=== PATIENT | female | born 1950 | race Caucasian/White ===

== ENCOUNTER 2020-12-07 18:11 | Inpatient (IN) | payer OTHER, BC ==
[~2020-12-07] VITALS: Ht 165.1 cm; Wt 76.7 kg
[2020-12-07 18:24] VITALS: BP 147/75
[2020-12-07 19:30] LABS: BASOPHILS 0.4 % (0.0-2.0); HEMATOCRIT 36.5 % (37.0-47.0); HEMOGLOBIN 12.7 gm/dL (12.0-15.0); LYMPHOCYTES 15.4 % (24.0-44.0); MCH 34.4 pg (26.0-34.0); MCHC 34.8 g/dL (28.0-37.0); MCV 98.9 fL (80.0-100.0); MONOCYTES 12.5 % (1.0-8.0); PLATELET COUNT 204 thou/uL (150-400); POLYS 68.7 % (36.0-66.0); RBC 3.69 mil/uL (4.20-5.00); RDW 15.2 % (10.5-14.5); WBC 5.8 thou/uL (4.0-11.0)
[2020-12-07 19:40] LABS: ANION GAP 8 mmol/L (7-16); BUN 18 mg/dL (7-18); CALCIUM 7.9 mg/dL (8.5-10.1); CHLORIDE 102 mmol/L (98-107); CO2 26 mmol/L (21-32); CREATININE 1.1 mg/dL (0.6-1.0); GLUCOSE 92 mg/dL (74-106); POTASSIUM 4.2 mmol/L (3.5-5.1); SODIUM 136 mmol/L (136-145)
[2020-12-07 19:49] LABS: ALBUMIN 3.1 g/dL (3.4-5.0); SGOT 18 U/L (15-37); SGPT 25 U/L (30-65); TOTAL BILIRUBIN 0.4 mg/dL (0.2-1.0); TOTAL PROTEIN 6.6 g/dL (6.4-8.2); TROPONIN-I <0.06 ng/mL (<0.06)
[2020-12-07 21:28] VITALS: BP 125/69
[2020-12-07 22:02] LABS: INR 0.93; PROTIME 10.2 Seconds (10.5-12.1)
[2020-12-07 22:11] VITALS: BP 123/67
[2020-12-07 23:00] VITALS: BP 138/62
[2020-12-08 04:52] LABS: CHOLESTEROL 206 mg/dL (<200); HDL CHOLESTEROL 49 mg/dL (>40); LDL CHOLESTEROL 145 mg/dL (<100); TC:HDL 4.2 Ratio (Not establshd); TRIGLYCERIDE 60 mg/dL (<150); VLDL 12 mg/dL (<40)
[2020-12-08 05:11] LABS: SERUM ASSESSMENT Clear
[2020-12-08 05:48] VITALS: BP 117/59
--- NOTE | 2020-12-08 06:23 | NUR ---
ADMITTED THIS PATIENT FROM EMERGENCY.ON ROOM AIR BREATHING SPONTANEOUSLY.NOT IN PAIN OR DISTRESS.ADMISSION COMPLETED.STROKE MOINTORING DONE AND CHARTED.ALL NEEDS ATTENDED.
[2020-12-08 07:00] LABS: AMP/METHAMP Negative (Negative); BARBITURATES Negative (Negative); BENZODIAZEPINES Negative (Negative); COCAINE Negative (Negative); METHADONE Negative (Negative); OPIATES Negative (Negative); PCP Negative (Negative)
--- NOTE | 2020-12-08 07:48 | EKG ---
[address] [address] ELECTROCARDIOGRAM REPORT Name: ASHLI MARS Room #: 200-I ADM IN M.R.#: [id number] Admission: 12/07/20 Attend Phys: Skyler Thomson MD Discharge: Date of : 54 Report #: [id number] [facility] ED Test Date: 2020-12-07 Test Time: 18:56:41 Pat Name: ASHLI MARS Department: Room: 200 Gender: F Pathology Lab Technician: amilcar : 1950 Requested By: Ramón Velasco Order Number: [id number] : Stoney Dale Measurements Intervals [place] Rate: 99 P: 68 WV: 149 QRS: 13 QRSD: 85 T: 42 QT: 359 QTc: 461 Interpretive Statements Sinus rhythm No previous ECG available for comparison Electronically Signed On 12-08-2020 7:48:26 CDT by Stoney Dale [email or web address] <ELECTRONICALLY SIGNED> By: Stoney Dale MD, [facility] 12/08/20 0748 1856 Stoney Dale MD, FACC /EPI
[2020-12-08 08:18] VITALS: BP 124/59
--- NOTE | 2020-12-08 12:22 | HC ---
[facility] [place] [address] CONSULTATION Name: ASHLI MARS Room #: 200-I ADM IN ..#: [id number] Admission: 12/07/20 Attend Phys: Skyler Thomson MD Discharge: Date of : 54 Report #: [id number] THIS REPORT FOR: cc: FAM - Family physician unknown FAM - Family physician unknown Rad Garza MD ~ DATE OF SERVICE: 12/07/2020 HISTORY OF PRESENT ILLNESS: This is a 70-year-old female patient who was admitted with a 15-minute episode of garbled speech. It came spontaneously. She was able to understand all the people, but she was not able to express herself. The speech was garbled. There was no associated weakness on either side. The symptoms came spontaneously and symptoms resolved spontaneously. REVIEW OF SYSTEMS: A 14-point review of system was carried out. She indicates that she is healthy. She does have rheumatoid arthritis and she takes some injections for that. She is not a known diabetic or hypertensive. She does not know what her last cholesterol was. She does have a history of COPD and CT-angiogram demonstrates the same thing. Rest of the 14-point review of system was carried out and noncontributory. PAST MEDICAL HISTORY: Negative for any cardiac problem or any stroke or TIA. FAMILY HISTORY: Negative for early age stroke. SOCIAL HISTORY: She says she drinks alcohol very rarely and she does not smoke. PHYSICAL EXAMINATION: NEUROLOGIC: Indicate she is alert, responsive, able to follow simple and complex commands. She was able to tell me what date it is. It did take a little longer. She knew who the President was. Her speech was clear. Cranial nerve examination 2-12 and neuromuscular examination is checked for strength, sensation, reflexes, and tone was unremarkable. There was no cerebellar sign. I could not look at the patient's fundus. She is a reasonably well-developed individual. Her hearing and vision is adequate. She has no edema, cyanosis, or jaundice. CARDIAC: Unremarkable. No respiratory difficulty was noticed. Pulses were palpable. VITAL SIGNS: Blood pressure is 131/64, respirations 13, pulse of 93. LABORATORY DATA: Labs indicate GFR is somewhat on the lower side at 49, calcium is somewhat on the lower side. She had a CT-angiogram, which was unremarkable. IMPRESSION: 1. Transient ischemic attack. 2. CT-angiogram showing some abnormality in the chest. I will defer evaluation [address] [address] CONSULTATION Name: ASHLI MARS Room #: 200-I ADM IN [facility]#: [id number] Admission: 12/07/20 Attend Phys: Skyler Thomson MD Discharge: Date of : 54 Report #: [id number] and management to the hospitalist. RECOMMENDATIONS: 1. I recommended MRI of the brain. She does not think she can it because she is claustrophobic, but she wants to try. 2. Echocardiogram with bubble study. 3. Aspirin. 4. Lipid profile. 5. Further management will depend upon the outcome of the above testing. I discussed all of it with the patient and discussed her options in that regard and she wants to follow this plan. Thank you very much for this referral. <ELECTRONICALLY SIGNED> By: Rad Garza MD 12/08/20 1222 1848 0036 Rad Garza MD /nt
--- NOTE | 2020-12-08 13:44 | 2DMMODE ---
[facility] [place] [address] 2 D/M-MODE ECHOCARDIOGRAM Name: ASHLI MARS Room #: 200-I ADM IN .R.#: [id number] Admission: 12/07/20 Attend Phys: Skyler Thomson MD Discharge: Date of : 54 Report #: [id number] THIS REPORT FOR: cc: FAM - Family physician unknown FAM - Family physician unknown Stoney Dale MD [facility] ~ APPROVED REPORT Study performed: 12/08/2020 12:02:58 EXAM: Comprehensive 2D, Doppler, and color-flow Echocardiogram Patient Location: In-Patient Room #: 200 Status: routine BSA: 1.92 HR: 78 bpm BP: 124/59 mmHg Rhythm: NSR Other Information Study Quality: Adequate 2D Dimensions RVDd: 26.87 mm IVSd: 12.86 (7-11mm) LVOT Diam: 20.90 (18-24mm) LVDd: 39.71 mm PWd: 9.85 (7-11mm) LVDs: 25.98 (25-40mm) Left Atrium: 28.28 (27-40mm) Aortic Root: 25.73 mm Volumes Left Atrial Volume (Systole) Single Plane 4CH: 24.33 mL Single Plane 2CH: 12.54 mL Aortic Valve AoV Peak Fausto.: 1.24 m/s AO Peak Gr.: 6.17 mmHg LVOT Max P.96 mmHg LVOT Max V: 0.86 m/s PACO Vmax: 2.38 cm2 Mitral Valve E/A Ratio: 1.9 MV Decel. Time: 261.83 ms [facility] [address] [place] [address] 2 D/M-MODE ECHOCARDIOGRAM Name: ASHLI MARS Room #: 200-I [facility] IN [facility]#: [id number] Admission: 12/07/20 Attend Phys: Skyler Thomson MD Discharge: Date of : 54 Report #: [id number] MV E Max Fausto.: 0.59 m/s MV A Fausto.: 0.31 m/s MV PHT: 75.93 ms Pulmonary Valve PV Peak Fausto.: 1.03 m/s PV Peak Gr.: 4.27 mmHg Pulmonary Vein P Vein S: 0.38 m/s P Vein A: 0.31 m/s P Vein D: 0.45 m/s P Vein S/D Ratio: 0.84 Tricuspid Valve TR Peak Fausto.: 2.62 m/s RAP Estimate: 7.00 mmHg TR Peak Gr.: 27.45 mmHg RVSP: 34.00 mmHg Left Ventricle The left ventricle is normal size. There is normal LV segmental wall motion. There is normal left ventricular wall thickness. Left ventricular systolic function is normal. The left ventricular ejection fraction is within the normal range. LVEF is 60-65%. Transmitral Doppler flow pattern suggests impaired LV relaxation. Right Ventricle The right ventricle is normal size. The right ventricular systolic function is normal. Atria The left atrium size is normal. The right atrium size is normal. Aortic Valve Aortic valve is trileaflet. No aortic regurgitation is present. There is no aortic valvular stenosis. Mitral Valve The mitral valve is normal in structure. Trace to mild mitral regurgitation. No evidence of mitral valve stenosis. Tricuspid Valve The tricuspid valve is normal in structure. Mild tricuspid regurgitation. Pulmonic Valve The pulmonary valve is normal in structure. There is no pulmonic [facility] [email or web address] [address] 2 D/M-MODE ECHOCARDIOGRAM Name: ASHLI MARS Room #: 200-I ADM IN [facility]#: [id number] Admission: 12/07/20 Attend Phys: Skyler Thomson MD Discharge: Date of : 54 Report #: [id number] valvular regurgitation. Great Vessels The aortic root is normal in size. IVC is normal in size and collapses >50% with inspiration. Pericardium There is no pericardial effusion. There is no pleural effusion. <Conclusion> Normal left ventricular size/wall thickness Ejection fraction 60% Normal right ventricular size/function Normal atrial size Normal aortic valve structure and function Mild mitral valve insufficiency Mild tricuspid valve insufficiency Pulmonary systolic pressure estimated at 34 mmHg No pericardial effusion Normal aortic root size. <ELECTRONICALLY SIGNED> By: Stoney Dale MD, [facility] 12/08/20 1343 1343 42 Stoney Dale MD, [facility] /INF
[2020-12-08 15:45] VITALS: BP 115/67
--- NOTE | 2020-12-08 17:58 | NUR ---
ASSUMED CARE SHIFT CHANGE. VSS. C/O HEADACHE MANAGED WITH PO TYLENOL. PT UP MILLER WELL. REFUSED AM PEPCID, REFUSES IV FLUIDS STATING SHE FEELS SHES DRINKING ENOUGH. MRI FOR TODAY- PT RELUCTANT IN GOING UNLESS PUT TO SLEEP WITH ANESTHESIA D/T CLAUSTROPHOBIA. NEURO NOTIFIED, AGREEABLE FOR PT TO HAVE DONE OUTPATIENT. AT APPROX 1600 PT HAD APHASIC EPISODE, CODE STROKE CALLED. APHASIA LASTED APPROX 3.5 MINUTES. VSS, NIH SCORE 3. NEUROLOGIST NOTIFIED, ORDERS RECEIVED FOR EEG. PT CURRENTLY SITTING UP IN BED. DENIES NEEDS. FREQ CHECKS ON PT. CONT POC, WILL PASS REPORT TO NOC RN.
[2020-12-08 20:00] VITALS: BP 137/77
[2020-12-09 02:10] LABS: GLYCOHEMOGLOBIN (HGB A1C) 5.6 % (4.8-5.6)
[2020-12-09 04:55] VITALS: BP 124/66
[2020-12-09] MEDS ORDERED: TIROSINT75 MCG PO (07:34)
[2020-12-09] MEDS ORDERED: LIPITOR 20 MG T20 M1 PO (07:34)
[2020-12-09] MEDS ORDERED: BAYER CHEWABLE81 MG PO (07:34)
[2020-12-09 08:28] VITALS: BP 125/65
[2020-12-09] MEDS ORDERED: CLOPIDOGREL75 MG PO (12:53)
--- NOTE | 2020-12-09 13:29 | NUR ---
PT RESTING COMFORTABLY. NIH-0. PT HAS HAD NO SPEECH PROBLEMS OR ANY OTHER NEURO DEFICIT. BUBBLE STUDY DONE AT BEDSIDE. EEG NEGATIVE. PT AFEBRILE, ADEQUATE UOP, NO BM, APPROPRIATE APPETITE. PT HAS BEEN THOUROUGHLY UPDATED AND EDUCATED ON PT CONDITION AND POC. PT PROGRESSED TOWARDS POC. PT TO BE DC HOME TODAY.
[2020-12-09 13:33] VITALS: BP 125/65
--- NOTE | 2020-12-09 13:49 | 2DMMODE ---
[facility] [place] [address] 2 D/M-MODE ECHOCARDIOGRAM Name: ASHLI MARS Room #: 200-I ADM IN M.R.#: [id number] Admission: 12/07/20 Attend Phys: Skyler Thomson MD Discharge: Date of : 54 Report #: [id number] THIS REPORT FOR: cc: FAM - Family physician unknown FAM - Family physician unknown Reece Colvin MD ~ APPROVED REPORT Patient Location: Bedside Room #: 200 Stress Nurse: Limited study for agitated saline injection. Normal left ventricular size and function. Normal atriums. The atrial septum show no shunt with normal saline injection. Conclusion 1. Adequate opacification of Right Atrium and Right Ventricle 2. No evidence of Left sided Microbubbles 3. No Intracardiac shunt noted <ELECTRONICALLY SIGNED> By: Reece Colvin MD 12/09/20 1349 1349 48 Reece Colvin MD /INF
--- NOTE | 2020-12-13 13:23 | EEG ---
[facility] [place] [address] ELECTROENCEPHALOGRAM Name: ASHLI MARS Room #: 200-I [facility] IN M.R.#: [id number] Admission: 12/07/20 Attend Phys: Skyler Thomson MD Discharge: 12/09/20 Date of : 54 Report #: [id number] THIS REPORT FOR: //name// EEG REPORT This patient's EEG was done by placing the electrode by standard 10-20 system of electrode placement. Both referential and sequential montages were used for recording. Background activity in this patient's EEG is about 10 Hz and 30 microvolts. The patient became drowsy and that is associated with bilateral slowing and vertex sharp waves. Throughout the record, no active epileptiform activity was noticed. A lot of muscle artifact is present. IMPRESSION: This patient's EEG does not demonstrate any clear-cut epileptiform activity. <ELECTRONICALLY SIGNED> By: Rad Garza MD 12/13/20 1323 1026 1049 Rad Garza MD /nt
== END 2020-12-09 14:32 | disposition home or self-care (01) | DRG 69 ==
LOC: ER 18:11 → 2N 20:45 → EROBS 20:45 → 2N 22:43
PROVIDERS: Emergency Medicine; Nurse Practitioner Family; ADMIT Hospitalist; ATTEND Hospitalist
DX: G45.9 Transient cerebral ischemic attack, unspecified (principal); Z20.822 Contact with and (suspected) exposure to COVID-19; M06.9 Rheumatoid arthritis, unspecified; J44.9 Chronic obstructive pulmonary disease, unspecified; E03.9 Hypothyroidism, unspecified; R47.89 Other speech disturbances; K21.9 Gastro-esophageal reflux disease without esophagitis; Z90.49 Acquired absence of other specified parts of digestive tract; Z88.2 Allergy status to sulfonamides; Z79.82 Long term (current) use of aspirin; Z79.899 Other long term (current) drug therapy; Z91.040 Latex allergy status
CPT/HCPCS: 10081